=== PATIENT | male | born 1960 | race Caucasian/White ===

== ENCOUNTER → 2019-10-31 11:04 | Outpatient (CLI) | payer OTHER, SELFPAY ==
--- NOTE | 2019-10-31 | DI.MRI.S_ITS ---
PROCEDURE: MR KNEE RT WO CON INDICATIONS: Pain in right knee TECHNIQUE: Noncontrast sagittal PD fast spin echo and T2 fast spin echo with fat saturation, sagittal 3-D FLASH with fat saturation; coronal T1 spin echo and PD fast spin echo with fat saturation, and axial PD fast spin echo with fat saturation through the knee. COMPARISON: [facility], CR, XR KNEE 4+ VIEWS RIGHT, 10/11/2019, 11:22. FINDINGS: Image quality: Excellent. Menisci: The free edge of the lateral meniscus appears truncated. In addition, there is horizontal tear involving the peripheral aspect of the body of the lateral meniscus. The medial meniscus demonstrates normal morphology and internal signal. The meniscal root ligaments appear intact. Cruciate ligaments: The anterior and posterior cruciate ligaments appear intact. Medial structures: The medial collateral ligament appears intact. The semimembranosus tendon insertionsand meniscocapsular junction appear intact. Visualized portions of the pes anserinus tendons appear normal. No abnormal bursal fluid. Lateral structures: The lateral collateral ligament and the biceps femoris tendon appear intact. The popliteus tendon appears normal. Iliotibial band appears normal. Anterior structures: The quadriceps and patellar tendons appear intact. Patellar alignment is normal. No femoral trochlear dysplasia or ventral trochlear prominence. No edema in the infrapatellar fat pad. Bones and cartilage: No bone marrow contusions or fractures. There is mild tricompartmental cartilage thinning. There is a full-thickness cartilage fissure and patella. Joint space: There is moderate knee joint fluid. A small Major's cyst is present. Normal appearing synovial plicae are incidentally noted. There may be a 9 mm intra-articular body in the superior lateral aspect of the knee joint. IMPRESSION: 1. Truncation of the free edge and horizontal tear of the peripheral aspect of the body of the lateral meniscus. 2. Mild articular cartilage thinning. There is a full-thickness cartilage fissure and patella. 3. Moderate knee joint effusion. 4. Small Major's cyst. 5. Probable 9 mm intra-articular body in the superior lateral aspect of knee joint. Dictated by: Patrick Hubbard M.D. on 10/31/2019 at 12:00 Approved by: Patrick Hubbard M.D. on 10/31/2019 at 12:20
== END ==
PROVIDERS: PCP Orthopaedic Surgery Adult Reconstructive Orthopaedic Surgery; Visit Provider Orthopaedic Surgery Adult Reconstructive Orthopaedic Surgery
DX: M25.561 Pain in right knee (principal); S83.261A Peripheral tear of lateral meniscus, current injury, right knee, initial encounter; M71.21 Synovial cyst of popliteal space [Baker], right knee; M25.461 Effusion, right knee
CPT/HCPCS: 73721

== ENCOUNTER 2021-08-26 09:42 | Observation (INO) | payer OTHER, SELFPAY ==
[2021-08-26] VITALS (16 sets, daily range): BP systolic 105–149; BP diastolic 71–91; PULSE 54–68; RESP 12–18; TEMP 36.1–36.7; O2SAT 97–100; BMI 25.7; BMI 24.0
--- NOTE | 2021-08-26 | DI.MRI.S_ITS ---
PROCEDURE: MR HEAD/BRAIN WO CON INDICATIONS: cva TECHNIQUE: Noncontrast axial T1 spin echo, axial T2 fast spin echo, sagittal and axial FLAIR, coronal T2 fast spin echo, axial gradient echo, axial diffusion and ADC through the brain. COMPARISON: None. FINDINGS: Image quality: Excellent. CSF Spaces: Basal cisterns are patent. No extra-axial fluid collections. Ventricles are normal in size and shape. Brain: No intracranial masses or hemorrhage. Gunderson/white matter interface is normal. Brainstem appears normal. Diffusion-weighted images demonstrate no acute ischemic insult. No chronic ischemic insults. Scattered small foci of increased T2 signal in deep white matter structures most likely represents mild sequelae of small vessel ischemic change. Normal intravascular flow voids are present. Skull and face: Calvarium has normal marrow signal. Orbits appear normal. Sinuses: Sinuses and mastoids are clear. IMPRESSION: 1. Scattered small foci of increased T2 signal most likely represent mild small foci of small vessel ischemic change. 2. No evidence of acute stroke, hemorrhage, or mass. Dictated by: Shane Molina M.D. on 08/26/2021 at 15:57 Approved by: Shane Molina M.D. on 08/26/2021 at 15:58
--- NOTE | 2021-08-26 09:53 | DI.RAD.S_ITS ---
PROCEDURE: XR CHEST 1V INDICATIONS: chest pain TECHNIQUE: One view of the chest was acquired. COMPARISON: [facility], CR, XR CHEST 1 VIEW, 08/22/2021, 12:24. FINDINGS: Surgical changes and devices: None. Lungs and pleura: An incomplete inspiratory result is noted, causing a crowded appearance to the lung markings. No focal infiltrates are seen. No pneumothorax or significant pleural effusions are seen. Mediastinum: Mediastinal contours appear normal. Heart size is normal. Bones and chest wall: No suspicious bony lesions. Overlying soft tissues appear unremarkable. IMPRESSION: Portable chest within normal limits. Dictated by: Daniele River M.D. on 08/26/2021 at 9:19 Approved by: Daniele River M.D. on 08/26/2021 at 9:20
--- NOTE | 2021-08-26 10:02 | DI.CT.S_ITS ---
PROCEDURE: CT HEAD/BRAIN WO CON INDICATIONS: left sided facial numbness TECHNIQUE: Noncontrast 4.5 mm thick angled axial sections acquired from the foramen magnum to the vertex, with coronal and sagittal reformats. For radiation dose reduction, the following was used: automated exposure control, adjustment of mA and/or kV according to patient size. COMPARISON: None. FINDINGS: Image quality: Excellent. CSF spaces: Basal cisterns are patent. No extra-axial fluid collections. Ventricles are normal in size and shape. Brain: No midline shift. No intracranial masses or hemorrhage. Gunderson-white matter interface is normal. Skull and face: Calvarium and visualized facial bones are intact, without suspicious lesions. Sinuses: Visualized sinuses and mastoids are clear. IMPRESSION: 1. No acute intracranial process. Dictated by: Fina Desai M.D. on 08/26/2021 at 11:00 Approved by: Fina Desai M.D. on 08/26/2021 at 11:01
[2021-08-26 10:06] LABS: Add Manual Diff / Slide Review NO; Basophils Absolute Auto 0 /uL (0-100); Basophils Percent Auto 0.2 % (0-2); Eosinophils Absolute Auto 100 /uL (0-450); Eosinophils Percent Auto 1.5 % (2-4); Hematocrit 39.2 % (41-53); Hemoglobin 13.4 g/dL (13.5-17.5); Lymphocytes Absolute Auto 1900 /uL (1100-4500); Lymphocytes Percent Auto 35.4 % (25-40); Mean Corpuscular HGB Conc 34.3 % (30-36); Mean Corpuscular Hemoglobin 29.1 PG (26-34); Mean Corpuscular Volume 84.9 fL (80-100); Monocytes Absolute Auto 300 /uL (0-900); Monocytes Percent Auto 5.2 % (3-14); Neutrophils Absolute Auto 3000 /uL (1500-7000); Neutrophils Percent Auto 57.7 % (50-75); Platelet Count 221 X10^3/uL (150-400); Red Blood Cell Count 4.62 X10^6/uL (4.5-5.9); Red Cell Distribution Width 15.6 % (11.6-14.8); White Blood Cell Count 5.3 X10^3/uL (4.5-11.0)
[2021-08-26 10:13] LABS: INR 1.1 (0.9-1.3); Prothrombin Time 11.8 SECONDS (10.1-12.7)
--- NOTE | 2021-08-26 10:13 | ED_ITS ---
HPI - Chest Pain General Chief Complaint: Chest Pain Stated Complaint: Numbness,odd heart beats,chest pain,indigestion Time Seen by Provider: 08/26/21 10:02 Source: patient Mode of arrival: Ambulatory Limitations: no limitations History of Present Illness HPI narrative: Patient is a 61-year-old male for who has a newly diagnosed heart condition of premature atrial complexes presenting today with left-sided facial numbness, and dizziness last night. He actually was having some chest palpitations and discomfort on August 22 he was initially seen at a walk-in clinic on [facility] and sent to [facility] for further workup appetite is had workup in the emergency department set up with outpatient Cardiology and discharged home. Last night he said he got extremely dizzy and felt like his heart was pounding. He said it lasted for a number of hours and just went away. This morning he went to work around 7:00 a.m. and felt like his left face was numb and had difficulty speaking. thought it sounded like he just come back from the dentist. Still has occasional heart palpitations but he does the not too terrible right now. He has no left arm numbness tingling or weakness. He has no facial droop. He has no difficulty speaking. Denies any shortness of breath. Related Data Home Medications Medication Instructions Recorded Confirmed fenofibrate 160 mg tablet 160 mg PO DAILY 08/26/21 08/26/21 fexofenadine 180 mg tablet 180 mg PO DAILY 08/26/21 08/26/21 fluticasone propionate 50 1 spray INTRANASAL BID PRN 08/26/21 08/26/21 mcg/actuation nasal spray,suspension glucosamine sulfate 500 mg tablet 1,000 mg PO DAILY 08/26/21 08/26/21 (Glucosamine) lisinopril 10 1 tab PO DAILY 08/26/21 08/26/21 mg-hydrochlorothiazide 12.5 mg tablet metoprolol succinate 50 mg 50 mg PO DAILY 08/26/21 08/26/21 tablet,extended release 24 hr omeprazole 20 mg capsule,delayed 20 mg PO DAILY 08/26/21 08/26/21 release vitamin B complex 1 cap PO DAILY 08/26/21 08/26/21 Allergies Allergy/AdvReac Type Severity Reaction Status Date / Time No Known Drug Allergies Allergy Verified 08/26/21 12:00 Review of Systems Review of Systems Narrative: GENERAL: Denies chills, fatigue, malaise, fever, sweats, travel HEENT: Denies sinus pain, ear pain, sore throat, difficulty swallowing, neck pain RESPIRATORY: Denies dyspnea, cough, wheezing, hemoptysis, sputum. CARDIOVASCULAR: See HPI GASTROINTESTINAL: Denies nausea, vomiting, abdominal pain, diarrhea, constipation, melena. : Denies dysuria, frequency, incontinence, hematuria, urinary retention, flank pain. MUSCULOSKELETAL: Denies weakness, joint pain, or bony pain SKIN: No rash, no erythema, no pruritus NEUROLOGIC: See HPI PSYCHIATRIC: No concerning psychosocial issues. 12 point review of systems is negative except for those stated above and HPI Patient History Social History household members: spouse Smoking Status: Never smoker Smoking Status: Never smoker Substance Use Type: does not use Exam Initial Vital Signs Initial Vital Signs: Vital Signs Pulse Rate 62 08/26/21 09:55 Respiratory Rate 13 08/26/21 09:55 Blood Pressure 140/91 H 08/26/21 09:55 Pulse Oximetry 99 08/26/21 09:55 GENERAL: Alert well-appearing 61-year-old her male in no acute distress. HEENT: Head atraumatic,EOMI, pupils reactive, face symmetric, moist mucous membranes CARDIOVASCULAR: Regular rate and rhythm without murmurs, rubs or gallops. RESPIRATORY: Breath sounds equal bilaterally, no wheezes rales or rhonchi. ABDOMEN: Soft, nontender. Normoactive bowel sounds all 4 quadrants. No guarding or rebound. EXTREMITIES: Normal range of motion, no clubbing or edema. Neurovascularly intact NEUROLOGICAL: Alert and oriented x4.Normal gait and speech. Cranial nerves II through XII grossly intact. Good moqfsy-oi-obti, good [id number], strength equal bilaterally, no dysarthria or aphasia, sensation in tact to soft touch bilaterally, no visual changes, no facial droop, mild left facial numbness SKIN: Warm, dry, no laceration, no petechiae, no rashes or lesions. Scores NIH Stroke Scale Level of Conciousness: Alert, keenly responsive Ask month/age: Answers both questions correctly. Open/close eyes, close hand: Performs both tasks correctly Best gaze horizontal: Normal Visual alonso: No visual loss Facial palsy: Normal symetrical movement Left arm drift: No drift for full 10 sec Right arm drift: No drift for full 10 sec Left leg drift: No drift for full 5 sec Right leg drift: No drift for full 5 sec Limb ataxia: Absent Sensory on face/arms/legs: Normal, no sensory loss Best language: No aphasia, normal Dysarthria: Normal Extinction or inattention: No abnormality Total NIH Stroke scale score: 0 Course Orders Ordered: ED Orders 08/26/21 12:10 EC echo doppler complete Urgent 08/26/21 12:49 COVID19 - ADMIT ([employer] swab/PCR) Stat Acetaminophen (Acetaminophen 325 Mg Tablet) 650 mg PO Q6HR PRN PRN Reason: Fever/Mild Pain (1-3) Aspirin (Aspirin Ec 81 Mg Tablet) 81 mg PO DAILY DASH Atorvastatin Calcium (Atorvastatin 20 Mg Tablet) 80 mg PO BEDTIME DASH Enoxaparin Sodium (Enoxaparin 40 Mg/0.4 Ml Syringe) 40 mg SUBCUT DAILY [facility] Sodium Chloride (Normal Saline 0.9%) 1,000 mls @ 75 mls/hr IV CONT DASH Last Admin: 08/26/21 16:04 Dose: 75 mls/hr Documented by: MAREK Ondansetron HCl (Ondansetron 4 Mg/2 Ml Inj) 4 mg IV Q8HR PRN PRN Reason: Nausea And Vomiting Sodium Chloride (Sodium Chloride 0.9% Flush) 10 ml IV PRN PRN PRN Reason: Flush Discontinued Medications Aspirin (Aspirin 81 Mg Chew Tab) 324 mg PO NOW ONE Stop: 08/26/21 11:41 Last Admin: 08/26/21 12:22 Dose: 324 mg Documented by: SAVANA Vital Signs Vital signs: Vital Signs - 8 hr 08/26/21 12:00 08/26/21 12:30 08/26/21 12:31 Pulse Rate 57 L 56 L 54 L Respiratory Rate 13 12 15 Blood Pressure 108/76 116/82 Pulse Oximetry 99 100 100 08/26/21 13:00 Pulse Rate 62 Respiratory Rate 13 Blood Pressure Pulse Oximetry 100 MDM - Chest Pain Lab Data Result diagrams: 08/26/21 10:00 08/26/21 10:00 Labs: Lab Results 08/26/21 08/26/21 08/26/21 Range/Units 10:00 10:00 10:00 WBC 5.3 (4.5-11.0) X10^3/uL RBC 4.62 (4.5-5.9) X10^6/uL Hgb 13.4 L (13.5-17.5) g/dL Hct 39.2 L (41-53) % MCV 84.9 (80-100) fL MCH 29.1 (26-34) PG MCHC 34.3 (30-36) % RDW 15.6 H (11.6-14.8) % Plt Count 221 (150-400) X10^3/uL Neut % (Auto) 57.7 (50-75) % Lymph % (Auto) 35.4 (25-40) % Jessamine % (Auto) 5.2 (3-14) % Eos % (Auto) 1.5 L (2-4) % Baso % (Auto) 0.2 (0-2) % Neut # (Auto) 3000 (9688-4687) /uL Lymph # (Auto) 1900 (0591-1302) /uL Jessamine # (Auto) 300 (0-900) /uL Eos # (Auto) 100 (0-450) /uL Baso # (Auto) 0 (0-100) /uL PT 11.8 (10.1-12.7) SECONDS INR 1.1 (0.9-1.3) APTT 34 (26.4-36.2) SECONDS Sodium 139 (137-145) mmol/L Potassium 3.9 (3.4-5.1) mmol/L Chloride 101 (98-107) mmol/L Carbon Dioxide 28 (22-32) mmol/L BUN 17 (9-20) mg/dL Creatinine 1.05 (0.66-1.25) mg/dL Estimated GFR > 60.0 (>60) mL/min BUN/Creatinine Ratio 16.2 (6-22) Glucose 98 (80-110) mg/dL Calcium 10.0 (8.4-10.2) mg/dL Magnesium 2.1 (1.6-2.3) mg/dL Total Bilirubin 1.0 (0.2-1.3) mg/dL AST 34 (17-59) IU/L ALT 35 (<50) IU/L Alkaline Phosphatase 42 (38-126) U/L Total Creatine Kinase 106 (55-170) U/L CK-MB (CK-2) 1.13 (<2.37) ng/mL CK-MB (CK-2) Rel Index 1.1 L (1.5-5.0) % Troponin I < 0.012 (0.01-0.034) ng/mL Total Protein 7.8 (6.3-8.2) g/dL Albumin 5.0 (3.5-5.0) g/dL Globulin 2.8 (1.7-4.1) g/dL Albumin/Globulin Ratio 1.8 (1.0-2.8) Lipase 96 (23-300) U/L TSH (0.47-4.68) uIU/mL SARS-CoV-2 (PCR) (Negative) 08/26/21 08/26/21 Range/Units 10:00 12:49 WBC (4.5-11.0) X10^3/uL RBC (4.5-5.9) X10^6/uL Hgb (13.5-17.5) g/dL Hct (41-53) % MCV (80-100) fL MCH (26-34) PG MCHC (30-36) % RDW (11.6-14.8) % Plt Count (150-400) X10^3/uL Neut % (Auto) (50-75) % Lymph % (Auto) (25-40) % Jessamine % (Auto) (3-14) % Eos % (Auto) (2-4) % Baso % (Auto) (0-2) % Neut # (Auto) (5787-3201) /uL Lymph # (Auto) (9003-6025) /uL Jessamine # (Auto) (0-900) /uL Eos # (Auto) (0-450) /uL Baso # (Auto) (0-100) /uL PT (10.1-12.7) SECONDS INR (0.9-1.3) APTT (26.4-36.2) SECONDS Sodium (137-145) mmol/L Potassium (3.4-5.1) mmol/L Chloride (98-107) mmol/L Carbon Dioxide (22-32) mmol/L BUN (9-20) mg/dL Creatinine (0.66-1.25) mg/dL Estimated GFR (>60) mL/min BUN/Creatinine Ratio (6-22) Glucose (80-110) mg/dL Calcium (8.4-10.2) mg/dL Magnesium (1.6-2.3) mg/dL Total Bilirubin (0.2-1.3) mg/dL AST (17-59) IU/L ALT (<50) IU/L Alkaline Phosphatase (38-126) U/L Total Creatine Kinase (55-170) U/L CK-MB (CK-2) (<2.37) ng/mL CK-MB (CK-2) Rel Index (1.5-5.0) % Troponin I (0.01-0.034) ng/mL Total Protein (6.3-8.2) g/dL Albumin (3.5-5.0) g/dL Globulin (1.7-4.1) g/dL Albumin/Globulin Ratio (1.0-2.8) Lipase (23-300) U/L TSH 3.33 (0.47-4.68) uIU/mL SARS-CoV-2 (PCR) Negative (Negative) Imaging Data CT scan - head: Radiologist's Impression: PROCEDURE:? CT HEAD/BRAIN WO CON ? INDICATIONS:? left sided facial numbness ? TECHNIQUE:? Noncontrast 4.5 mm thick angled axial sections acquired from the foramen magnum to the vertex, with coronal and sagittal reformats.? For radiation dose reduction, the following was used:? automated exposure control, adjustment of mA and/or kV according to patient size.? ? COMPARISON:? None. ? FINDINGS:? Image quality:? Excellent.? ? CSF spaces:? Basal cisterns are patent.? No extra-axial fluid collections.? Ventricles are normal in size and shape.? ? Brain:? No midline shift.? No intracranial masses or hemorrhage.? Gunderson-white matter interface is normal.? ? Skull and face:? Calvarium and visualized facial bones are intact, without suspicious lesions.? ? Sinuses:? Visualized sinuses and mastoids are clear.? ? IMPRESSION:? ? 1. No acute intracranial process. ? ? Dictated by: Fina Desai M.D. on 08/26/2021 at 11:00 ? ? CTA - brain/neck: Radiologist's Impression: PROCEDURE:? CT ANGIO HEAD AND NECK ? INDICATIONS:? dizzy ? TECHNIQUE:? After the administration of intravenous contrast, 1 mm thick sections acquired from the aortic arch through the [place] of [place].? Post-contrast 4.5 mm thick sections then re-acquired from the foramen magnum to the vertex.? 3-dimensional gslwlev-mbdvelaso-eqwvvivsaw (MIP) and/or volume rendering reformats were acquired of the central intracranial vasculature and neck separately. ? COMPARISON:? [facility], CT, CT HEAD/BRAIN WO CON, 08/26/2021, 10:09. ? FINDINGS:? Image quality:? Excellent.? ? BRAIN:? CSF spaces:? Ventricles are normal in size and shape.? Basal cisterns are patent.? No extra-axial fluid collections.? ? Brain:? No midline shift.? No intracranial bleeds or masses.? Gunderson-white matter interface appears intact.? ? Skull and face:? Calvarium and facial bones appear intact, without suspicious lesions.? Orbits appear normal.? ? Sinuses:? Sinuses and mastoids are clear.? ? HEAD CT ANGIOGRAPHY:? Anterior circulation:? Intracranial internal carotid arteries are normal in size and flow.? The flow within the paired anterior cerebral arteries is normal and symmetric.? The flow within the middle cerebral arteries is normal and symmetric.? The anterior communicating artery is seen.? No aneurysms are seen.? ? Posterior circulation:? Visualized portions of the vertebral arteries demonstrate normal caliber, and join to form a normal appearing basilar artery.? Flow within the posterior cerebral arteries is normal and symmetric.? No aneurysms are seen.? ? NECK CT ANGIOGRAPHY:? Carotid system:? There is a common trunk for the left common carotid artery and innominate artery.? The origins of the common carotid arteries appear patent.? The common carotid arteries demonstrate normal caliber and courses.? The bifurcation regions are both widely patent.? The internal carotid arteries demonstrate normal calibers and courses.? ? Posterior circulation:? The origins of the vertebral arteries both appear widely patent.? The more superior extracranial portions of both vertebral arteries also demonstrate normal courses and calibers.? They join to form a normal appearing basilar artery.? ? Soft tissues:? Visualized neck soft tissues demonstrate no suspicious abnormalities.? ? Bones:? No suspicious bony lesions.? Visualized cervical spine appears normally aligned.? IMPRESSION:? ? 1. No acute intracranial abnormalities. ? 2. No hemodynamic significant stenosis in anterior or posterior circulations. ? 3. No hemodynamic significant stenosis in cervical carotid arteries or vertebral arteries bilaterally. ? ? Any quantitative measurements of stenosis were performed using NASCET criteria.? ? ? Dictated by: Patrick Hubbard M.D. on 08/26/2021 at 10:56 ? ? Approved by: Patrick Hubbard M.D. on 08/26/2021 at 11:04 ? ECG Data Interpretation: Sinus rhythm rate 59 ID interval 190 QRS 82 QTC 411 some mild artifact noted, no priors in cardio electrical prospecting observer, patient comes with copy from prior visit and is similar MDM Narrative Medical decision making narrative: Patient overall appears well. Last night he had episode of palpitations with dizziness and this morning has left-sided f acial numbness. Possible episode of atrial fibrillation with possible TIA versus CVA today. Low NIH stroke scale CT are negative. No abnormality on the monitor her EKG troponin is also negative. However concern the patient may have had a TIA. Discussion with Dr. Perez, who happily accepts patient to observation. Discharge Plan Departure Patient Disposition: Admitted as Observation Clinical Impression: Brain TIA, Chest pain Admit Date/Time: 08/26/21 13:23 Admit Provider: Johnathon Perez
[2021-08-26 10:15] LABS: PTT Partial Thromboplastin Tim 34 SECONDS (26.4-36.2)
[2021-08-26 10:21] LABS: Alanine Aminotransferase 35 IU/L (<50); Albumin Globulin Ratio 1.8 (1.0-2.8); Alkaline Phosphatase 42 U/L (38-126); Aspartate Aminotransferase 34 IU/L (17-59); BUN Creatinine Ratio 16.2 (6-22); Blood Urea Nitrogen 17 mg/dL (9-20); Carbon Dioxide 28 mmol/L (22-32); Chloride 101 mmol/L (98-107); Creatine Kinase 106 U/L (55-170); Estimated Glomerular Filt Rate > 60.0 mL/min (>60); Globulin 2.8 g/dL (1.7-4.1); Glucose 98 mg/dL (80-110); HEMOLYSIS < 15 (0-50); Lipase 96 U/L (23-300); Magnesium 2.1 mg/dL (1.6-2.3); Potassium 3.9 mmol/L (3.4-5.1); Sodium 139 mmol/L (137-145); Total Protein 7.8 g/dL (6.3-8.2)
--- NOTE | 2021-08-26 10:27 | DI.CT.S_ITS ---
PROCEDURE: CT ANGIO HEAD AND NECK INDICATIONS: dizzy TECHNIQUE: After the administration of intravenous contrast, 1 mm thick sections acquired from the aortic arch through the [place] of [place]. Post-contrast 4.5 mm thick sections then re-acquired from the foramen magnum to the vertex. 3-dimensional kqriyhh-czzxshonr-bugaiorqnb (MIP) and/or volume rendering reformats were acquired of the central intracranial vasculature and neck separately. COMPARISON: [facility], CT, CT HEAD/BRAIN WO CON, 08/26/2021, 10:09. FINDINGS: Image quality: Excellent. BRAIN: CSF spaces: Ventricles are normal in size and shape. Basal cisterns are patent. No extra-axial fluid collections. Brain: No midline shift. No intracranial bleeds or masses. Gunderson-white matter interface appears intact. Skull and face: Calvarium and facial bones appear intact, without suspicious lesions. Orbits appear normal. Sinuses: Sinuses and mastoids are clear. HEAD CT ANGIOGRAPHY: Anterior circulation: Intracranial internal carotid arteries are normal in size and flow. The flow within the paired anterior cerebral arteries is normal and symmetric. The flow within the middle cerebral arteries is normal and symmetric. The anterior communicating artery is seen. No aneurysms are seen. Posterior circulation: Visualized portions of the vertebral arteries demonstrate normal caliber, and join to form a normal appearing basilar artery. Flow within the posterior cerebral arteries is normal and symmetric. No aneurysms are seen. NECK CT ANGIOGRAPHY: Carotid system: There is a common trunk for the left common carotid artery and innominate artery. The origins of the common carotid arteries appear patent. The common carotid arteries demonstrate normal caliber and courses. The bifurcation regions are both widely patent. The internal carotid arteries demonstrate normal calibers and courses. Posterior circulation: The origins of the vertebral arteries both appear widely patent. The more superior extracranial portions of both vertebral arteries also demonstrate normal courses and calibers. They join to form a normal appearing basilar artery. Soft tissues: Visualized neck soft tissues demonstrate no suspicious abnormalities. Bones: No suspicious bony lesions. Visualized cervical spine appears normally aligned. IMPRESSION: 1. No acute intracranial abnormalities. 2. No hemodynamic significant stenosis in anterior or posterior circulations. 3. No hemodynamic significant stenosis in cervical carotid arteries or vertebral arteries bilaterally. Any quantitative measurements of stenosis were performed using NASCET criteria. Dictated by: Patrick Hubbard M.D. on 08/26/2021 at 10:56 Approved by: Patrick Hubbard M.D. on 08/26/2021 at 11:04
[2021-08-26 10:32] LABS: Troponin I < 0.012 ng/mL (0.01-0.034)
[2021-08-26 10:36] LABS: CKMB % Relative Index 1.1 % (1.5-5.0); Creatine Kinase MB 1.13 ng/mL (<2.37)
--- NOTE | 2021-08-26 11:23 | PC.NURSE ---
Pt also c/o numbness and tingling on left side of face. Moving all extremities equally well. Denies shortness of breath, fever, cough.
--- NOTE | 2021-08-26 12:10 | DI.ECHO.S_ITS ---
[facility] +---------+ : : [address] : [address] : : : : [id number] : : : : Phone: [phone]+ Echocardiogram Report + + :Name: ASAF ZHOU Study Date: 08/26/2021 Height: 74 in : :[facility] ReadingLocation: Weight: 200 lb : : Gender: Male BSA: 2.2 m2 : :: 1960 Age: 61 yrs BP: 116/82 mmHg: :Reason For Study: TIA : :Ordering Physician: KRISTIAN, : :MARISELA Performed By: Martha Main : :Referring: MARISELA TOWNSEND : + + Interpretation Summary The ejection fraction is estimated to be 55-60%. Diastolic parameters suggest probable normal left ventricular diastolic function and normal filling pressures. The right ventricular systolic function is normal. No significant valvular abnormalities. Pulmonary artery pressures cannot be estimated because of the lack of a measurable TR jet velocity. Procedure: A two-dimensional transthoracic echocardiogram with color flow and Doppler was performed. The study quality was technically good. There is no prior echocardiogram noted for this patient. A saline contrast injection was performed to assess for cardiac shunting. The injection was performed through an intravenous line in the right arm. The patient was in sinus bradycardia with heart rates between 50-64 bpm during the exam. Left Ventricle: The left ventricle is normal in size and wall thickness. The ejection fraction is estimated to be 55-60%. Diastolic parameters suggest probable normal left ventricular diastolic function and normal filling pressures. Right Ventricle: The right ventricle is normal size. The right ventricular systolic function is normal. Atria: The left atrial size is normal. Right atrial size is normal. There is no Doppler evidence for an interatrial shunt. Injection of contrast documented no interatrial shunt. Mitral Valve: The mitral valve is normal in structure and function. There is trace mitral regurgitation. Aortic Valve: The aortic valve is trileaflet. The aortic valve opens well. There is no aortic valve stenosis. No aortic regurgitation is present. Tricuspid Valve: The tricuspid valve is normal in structure and function. There is trace tricuspid regurgitation. Pulmonary artery pressures cannot be estimated because of the lack of a measurable TR jet velocity. Pulmonic Valve: The pulmonic valve leaflets are thin and pliable; valve motion is normal. There is no pulmonic valvular regurgitation. Great Vessels: The aortic root is normal size. The ascending aorta is mildly enlarged. The inferior vena cava was not visualized. Pericardium/ Pleura There is no pericardial effusion. There is no pleural effusion. MMode/2D Measurements & Calculations LVIDd: 4.6 cm LVOT diam: 2.1 cm LVIDs: 3.3 cm Ao root diam: 3.5 cm FS: 27.8 % asc Aorta Diam: 3.7 cm IVSd: 1.0 cm Ao Arch Diam (Prox Trans): 3.0 cm LVPWd: 0.97 cm LV martinez. diameter/BSA (cm/m^2): 2.1 LV sys. diameter/BSA (cm/m^2): 1.5 LA A2 area: 23.3 cm2 RA long axis: 5.6 cm LA A4 area: 19.4 cm2 RA area: 20.1 cm2 LA length (vol): 5.8 cm RA vol: 61.0 ml LA vol: 66.3 ml RA : 28.1 ml/m2 LA vol index: 30.5 ml/m2 RVD1 (basal): 4.1 cm TAPSE: 1.8 cm Doppler Measurements & Calculations Ao V2 max: 129.1 cm/sec LVOT Max Andrés: 84.0 cm/sec Ao V2 mean: 87.7 cm/sec LV V1 max P.8 mmHg Ao max P.7 mmHg LV V1 VTI: 19.4 cm Ao mean P.5 mmHg KENDRA(I,D): 2.4 cm2 Ao V2 VTI: 28.7 cm KENDRA(V,D): 2.3 cm2 sev ratio: 0.68 KENDRA indexed to BSA (cm^2/m^2): 1.1 MV E max andrés: 55.0 cm/sec TR max andrés: 212.3 cm/sec MV A max andrés: 69.0 cm/sec TR max P.0 mmHg MV E/A: 0.80 PA V2 max: 80.4 cm/sec Med Peak E' Andrés: 5.5 cm/sec PA V2 mean: 54.6 cm/sec E/E' med: 10.1 PA mean P.3 mmHg Lat Peak E' Andrés: 8.5 cm/sec PA pr(Accel): 22.5 mmHg E/E' lat: 6.5 E/e' average: 8.3 MV dec time: 0.23 sec SV(LVOT): 67.5 ml Reading Physician:01:50 PM
[2021-08-26] MEDS: ASPIRIN 81 MG CHEW TAB 324 MG PO (12:22)
--- NOTE | 2021-08-26 13:18 | PC.NURSE ---
portable echo complete.
[2021-08-26 14:11] LABS: COVID19 - ADMIT (NP swab/PCR) Negative (Negative)
--- NOTE | 2021-08-26 15:11 | ST.IPSCREEN ---
Completed speech and swallow screen with Tavo. He was awake, alert, and seated at the edge of his bed when clinician arrived. Tavo reported no facial weakness or numbness, no difficulty speaking, and no difficulty swallowing. Completed oral motor exam with Tavo. Tavo exhibited strength and ROM of structures WNL. Hyolaryngeal elevation and excursion was WNL on dry swallow and when drinking water through straw cup. Oral structures appeared symmetrical and WNL. Structure and function of oral mechanism appears WNL for the purposes of speech and swallowing. No overt signs or symptoms of aspiration observed on trials of thin liquids through straw cup. Speech was clear and 100% intelligible. Speech therapy is not recommended at this time.
[2021-08-26 15:54] LABS: TSH w/ Reflex to FT4 3.33 uIU/mL (0.47-4.68)
[2021-08-26] MEDS: SODIUM CHLORIDE 0.9% 1,000 ML 75 ML IV (16:04)
--- NOTE | 2021-08-26 16:23 | OT.IPNOTE ---
Pt states does not feel that he has any OT needs at this time. Pt is the process on getting heart pads attached to him with nursing, therefore decided since pt staying overnight to touch base with pt in the morning.
--- NOTE | 2021-08-26 17:02 | DI.NM.S_ITS ---
PROCEDURE: NM EXERCISE TREADMILL NON NUC COMPARISON: None. INDICATIONS: Chest pain FINDINGS: Resting ECG sinus rhythm. Armand protocol 9 minutes, 10 seconds; 10.1 METS; MOSHE -5%. Maximum heart rate 173 bpm, 108% peak predicted. Maximum blood pressure 188/96. Stress ECG sinus tachycardia, rare PAC and PVC, no ST segment changes. IMPRESSION: 1. No evidence of exercise induced ischemia by ECG criteria. 2. Good exercise capacity. 3. Normal blood pressure response to exercise. Dictated by: Rhonda Galeana DO.. on 08/27/2021 at 14:14 Approved by: Rhonda Galeana M.D. on 08/27/2021 at 14:17
[2021-08-26] MEDS: ATORVASTATIN 20 MG TABLET 80 MG PO (21:20)
[2021-08-26] MEDS: SODIUM CHLORIDE 0.9% FLUSH 10 ML IV (21:20)
--- NOTE | 2021-08-26 21:55 | PM.HP.1 ---
History of Present Illness History of Present Illness Date Patient Seen: 08/26/21 Time Patient Seen: 16:00 Chief complaint: Numbness,odd heart beats,chest pain,indigestion Narrative: Mr. Pascual is a 61M with PMH of HTN, HL who presents with chest pain, palpitations and left sided facial numbness. Patient has had issues with palpitations previously. He is currently on metoprolol, has been for years, for he says blood pressure, not arrhythmia. He presented to [facility] ED on 08/22 with palpitations and was diagnosed with PACs and sent home. Since being sent home he has had intermittent chest tightness, continued palpitains, dizzines, no shortness of breath. He also developed left sided facial pain, facial numbness, and difficulty speaking. These resolved without intervention. In the ED workup was done, vitals notable for mild bradycardia in 50s-60s. Labs notable for WBC 5.3, hgb 13.4, k 3.9, creatinine 1.05, mag 2.1, trop negative. EKG showed no acuet ischemic changes. CT head showed no acute process. CTA head/neck showed no acute process. He was admitted for further treatment. Family history - Mother had diseased heart valve Patient History Family & Social History Social History: household members spouse Safety & Behavioral: Feels Safe in Current Yes Environment Been Physically Hurt or No Threatened By a Person Suicidal Ideation Description None Suicide Plan Description No Plan Tobacco & Substance use: Smoking Status Never smoker alcohol intake frequency a few times a month Substance Use Type does not use Meds Home Medications and Allergies Home Medications Medication Instructions Recorded Confirmed Type fenofibrate 160 mg tablet 160 mg PO DAILY 08/26/21 08/26/21 History fexofenadine 180 mg tablet 180 mg PO DAILY 08/26/21 08/26/21 History fluticasone propionate 50 1 spray INTRANASAL BID PRN 08/26/21 08/26/21 History mcg/actuation nasal spray,suspension glucosamine sulfate 500 mg tablet 1,000 mg PO DAILY 08/26/21 08/26/21 History (Glucosamine) lisinopril 10 1 tab PO DAILY 08/26/21 08/26/21 History mg-hydrochlorothiazide 12.5 mg tablet metoprolol succinate 50 mg 50 mg PO DAILY 08/26/21 08/26/21 History tablet,extended release 24 hr omeprazole 20 mg capsule,delayed 20 mg PO DAILY 08/26/21 08/26/21 History release vitamin B complex 1 cap PO DAILY 08/26/21 08/26/21 History Allergies Allergy/AdvReac Type Severity Reaction Status Date / Time No Known Drug Allergies Allergy Verified 08/26/21 12:00 Review of Systems Review of Systems Narrative: 14 systems reviewed and negative aside from what is noted in HPI Exam Vital Signs (past 8 hours): - 08/26/21 14:21 08/26/21 15:55 08/26/21 20:00 Temperature 97.3 F L 97.0 F L 98.0 F Pulse Rate 57 L 56 L 68 Respiratory Rate 16 16 18 Blood Pressure 124/71 122/89 111/83 Pulse Oximetry 99 100 98 08/26/21 21:15 Temperature Pulse Rate Respiratory Rate Blood Pressure Pulse Oximetry 98 Oxygen Delivery Method Room Air Oxygen Flow Rate 0 Narrative Exam Narrative: GEN: no acute distress HEENT: moist mucous membranes, PERRL NECK: trachea midline, no JVD CV: regular rate rhythm, with no murmurs PULM: clear bilaterally, no wheezes, rhonchi, rales ABD: soft, nontender, nondistende, no organomegaly EXT: warm and well perfused, with no edema NEURO: awake, and alert, no focal deficits, upper and lower extremity strength 5/5, cn 2-12 intact, normal speech, no facial droop Objective Labs Result Diagrams: 08/26/21 10:00 08/26/21 10:00 Labs: Laboratory Results - last 24 hr 08/26/21 08/26/21 08/26/21 10:00 10:00 10:00 WBC 5.3 RBC 4.62 Hgb 13.4 L Hct 39.2 L MCV 84.9 MCH 29.1 MCHC 34.3 RDW 15.6 H Plt Count 221 Neut % (Auto) 57.7 Lymph % (Auto) 35.4 Perry % (Auto) 5.2 Eos % (Auto) 1.5 L Baso % (Auto) 0.2 Neut # (Auto) 3000 Lymph # (Auto) 1900 Perry # (Auto) 300 Eos # (Auto) 100 Baso # (Auto) 0 PT 11.8 INR 1.1 APTT 34 Sodium 139 Potassium 3.9 Chloride 101 Carbon Dioxide 28 BUN 17 Creatinine 1.05 Estimated GFR > 60.0 BUN/Creatinine Ratio 16.2 Glucose 98 Calcium 10.0 Magnesium 2.1 Total Bilirubin 1.0 AST 34 ALT 35 Alkaline Phosphatase 42 Total Creatine Kinase 106 CK-MB (CK-2) 1.13 CK-MB (CK-2) Rel Index 1.1 L Troponin I < 0.012 Total Protein 7.8 Albumin 5.0 Globulin 2.8 Albumin/Globulin Ratio 1.8 Lipase 96 TSH SARS-CoV-2 (PCR) 08/26/21 08/26/21 10:00 12:49 WBC RBC Hgb Hct MCV MCH MCHC RDW Plt Count Neut % (Auto) Lymph % (Auto) Perry % (Auto) Eos % (Auto) Baso % (Auto) Neut # (Auto) Lymph # (Auto) Perry # (Auto) Eos # (Auto) Baso # (Auto) PT INR APTT Sodium Potassium Chloride Carbon Dioxide BUN Creatinine Estimated GFR BUN/Creatinine Ratio Glucose Calcium Magnesium Total Bilirubin AST ALT Alkaline Phosphatase Total Creatine Kinase CK-MB (CK-2) CK-MB (CK-2) Rel Index Troponin I Total Protein Albumin Globulin Albumin/Globulin Ratio Lipase TSH 3.33 SARS-CoV-2 (PCR) Negative Assessment & Plan Assessment & Plan narrative: Mr. Pascual is a 61M with PMH HTN, HL who presents to the hospital with palpitations, chest discomfort, left facial numbness now resolved. 1. Possible TIA -ordered for neuro assessments -MRI ordered -ECHO showed EF 50-55%, no acute findings -lipids, a1c ordered -started on aspirin, and statin -ordered for PT/OT and speech therapy, but may not need as appears very functional 2. Chest pain/palpitations -patient has EKG with PACs, here in the hospital is slightly bradycardic -possibly those are causing symptoms -will hold metoprolol for now and see if that improves symptoms -trend troponins -ordered for stress test -may need holter monitor as outpatient 3. Hypertension -hold anti-hypertensives for tonight and see if patient's symptoms improve 4. Bradycardia -not clear if the cause of symptoms, given bradycardia is mild doubt that it is cause -will hold metoprolol for now and monitor Code: Heating Engineer Spent With Patient Critical Care time: I spent a total of [] minutes of critical care time on this patient's care today; this time is exclusive of procedural time.
[2021-08-26 23:52] LABS: Troponin I < 0.012 ng/mL (0.01-0.034)
[2021-08-27 04:27] VITALS: BP 109/66; PULSE 66; RESP 18; O2SAT 99
[2021-08-27 05:11] LABS: BUN Creatinine Ratio 20.5 (6-22); Blood Urea Nitrogen 18 mg/dL (9-20); Calcium 9.6 mg/dL (8.4-10.2); Carbon Dioxide 27 mmol/L (22-32); Chloride 104 mmol/L (98-107); Cholesterol 115 mg/dL (140-199); Estimated Glomerular Filt Rate > 60.0 mL/min (>60); Glucose 103 mg/dL (80-110); HDL Cholesterol 34 mg/dL (40-60); HEMOLYSIS < 15 (0-50); LDL Cholesterol Calculated 56 mg/dL (<100); Potassium 3.9 mmol/L (3.4-5.1); Sodium 139 mmol/L (137-145); Triglycerides 124 mg/dL (35-150)
[2021-08-27 05:22] LABS: Add Manual Diff / Slide Review NO; Basophils Absolute Auto 100 /uL (0-100); Basophils Percent Auto 1.2 % (0-2); Eosinophils Absolute Auto 100 /uL (0-450); Eosinophils Percent Auto 1.5 % (2-4); Hematocrit 37.7 % (41-53); Hemoglobin 13.1 g/dL (13.5-17.5); Lymphocytes Absolute Auto 1600 /uL (1100-4500); Lymphocytes Percent Auto 28.4 % (25-40); Mean Corpuscular HGB Conc 34.8 % (30-36); Mean Corpuscular Hemoglobin 29.2 PG (26-34); Mean Corpuscular Volume 83.9 fL (80-100); Monocytes Absolute Auto 200 /uL (0-900); Monocytes Percent Auto 4.5 % (3-14); Neutrophils Absolute Auto 3500 /uL (1500-7000); Neutrophils Percent Auto 64.4 % (50-75); Platelet Count 195 X10^3/uL (150-400); Red Blood Cell Count 4.49 X10^6/uL (4.5-5.9); Red Cell Distribution Width 15.6 % (11.6-14.8); White Blood Cell Count 5.5 X10^3/uL (4.5-11.0)
[2021-08-27 05:23] LABS: Troponin I < 0.012 ng/mL (0.01-0.034)
--- NOTE | 2021-08-27 05:24 | PC.NURSE ---
Shift Note-Patient is A/Ox4, no c/o chest pain, palpitations, or dizziness, orthostatic VS lying 68, 109/66, sitting 74, 123/91, standing 95, 107/94. SB 50s while sleeping.
[2021-08-27] MEDS: SODIUM CHLORIDE 0.9% 1,000 ML 75 ML IV (05:32)
[2021-08-27 07:00] VITALS: BP 114/79; PULSE 70; RESP 16; TEMP 36.2; O2SAT 99
[2021-08-27 08:00] VITALS: O2SAT 99
[2021-08-27 09:00] VITALS: BP 135/97; PULSE 95
[2021-08-27] MEDS: ENOXAPARIN 40 MG/0.4 ML SYRINGE SUBCUT (10:27)
[2021-08-27] MEDS: ASPIRIN EC 81 MG TABLET PO (10:27)
--- NOTE | 2021-08-27 12:00 | OT.IPNOTE ---
Chart reviewed and nursing consulted. Per nursing, pt is IND in his mobility and ADLs at this time. Discussed with Pt and he agreed that he is at his baseline. No further OT needs at this time. Will d/c order.
[2021-08-27 12:27] VITALS: BP 134/80; PULSE 61; RESP 16; TEMP 36.6; O2SAT 97
--- NOTE | 2021-08-27 13:03 | PT-IP ANOTE ---
nurse stated that pt is independent with mobility in room and does not need PT. talked to pt and stated that he does not have any concerns with mobility and confirmed that he does not need PT. will d/c PT eval order.
--- NOTE | 2021-08-27 14:07 | CM.DANOTE ---
Patient is a 61 yo male who was admitted on 08/26/21 for Numbness, chest pain. Pt has [employer] for insurance and his PCP is Dougie Marquez. EMR was reviewed. Per MD, pt admitted for TIA r/o and very functional at baseline. Pt to have MRI and stress test with likely d/c home this evening pending test results. Per PT/OT, pt very independent and active at baseline and independent in the room and no concerns and therefore PT/OT discontinued as pt is not needing eval as he is back to baseline with no deficits. Per RN, no concerns regarding any identified barriers to discharge. Pt lives in [place] with his spouse and drives and does not use DME for ambulation and works for the school district and preference is to d/c home via spouse POV and does not anticipate any needs at d/c. Plan: SW to follow for likely d/c home tonight pending test results and currently no SW needs at this time, please refer if indicated. JOE Loera Discharge Planning/Care Management Advanced directive, confirm from FAMILY Start: 08/26/21 14:23 Freq: Q24H Status: Active Protocol: Document 08/26/21 14:23 JLN (Rec: 08/26/21 15:08 JLN [id number]) Advance Directive, confirm on record Time 14:25 Person contacted patient Copy received No CM Discharge Assessment Start: 08/27/21 14:05 Freq: Status: Active Protocol: Document 08/27/21 14:05 BF (Rec: 08/27/21 14:07 BF [id number]) Discharge Planning Assessment Assigned Immunopathologist JOE Gomes DPOA/Assigned Designee Name spouse Kaela Contact Information [phone] Advance Directives? Yes Advance Directives on File No History Provided By Patient,Medical Record Has Patient been admitted in last 30 No days? Prior Living Arrangements House Household Members spouse Type of transporation used prior to Drives own vehicle admit Independent with ADL's Yes Is patient alert and oriented? Yes Caregiver for Another No Discharge Plan Home Transportation Arrangement spouse can provide transport at d/c Referrals Initiated None needed Review Status In Process Please Provide Date Initial DC 08/27/21 Assessment Was Performed Next Review Type Continued Stay Review
--- NOTE | 2021-08-27 14:21 | PC.NURSE ---
0900- Pt finished eating breakfast. C/o heart pounding as well as some mild dizziness. Denies chest pain/pressure, numbness/tingling/burning. He states this happens after he eats. Noted increased PVCs and PACs on telemetry. BP WNL. Instructed pt to notify staff if symptoms increase/change/worsen. ~0945 Pt reports heart pounding and pounding into head with continued dizziness. Denies chest pain/pressure. Denies numbness/tingling burning in face/extremities. BP WNL. EKG obtained. Reported to Dr. Baker and reviewed tele and EKG readings as well as pt's symptoms. No add'l orders at this time. Plan is for pt to have treadmill stress test today. Update given to pt who verbalized understanding.
--- NOTE | 2021-08-27 14:39 | P.DS_ITS ---
History of Present Illness History of Present Illness Date Patient Seen: 08/27/21 Time Patient Seen: 14:39 Chief complaint: Numbness,odd heart beats,chest pain,indigestion Narrative: Per Dr. Perez, Mr. Pascual is a 61M with PMH of HTN, HL who presents with chest pain, palpitations and left sided facial numbness. Patient has had issues with palpit ations previously. He is currently on metoprolol, has been for years, for he says blood pressure, not arrhythmia. He presented to [facility] ED on 08/22 with palpitations and was diagnosed with PACs and sent home. Since being sent home he has had intermittent chest tightness, continued palpitains, dizzines, no shortness of breath. He also developed left sided facial pain, facial numbness, and difficulty speaking. These resolved without intervention. In the ED workup was done, vitals notable for mild bradycardia in 50s-60s. Labs notable for WBC 5.3, hgb 13.4, k 3.9, creatinine 1.05, mag 2.1, trop negative. EKG showed no acuet ischemic changes. CT head showed no acute process. CTA head/neck showed no acute process. He was admitted for further treatment. Family history - Mother had diseased heart valve Discharge Providers Provider Date of admission: 08/26/21 13:23 Discharge Date: 08/27/21 Primary care physician: Dougie Marquez DO Consults: 08/26/21 14:23 Consult to Discharge Planning Routine Comment: Consult to Occupational Therapy Evaluate & Treat Comment: Physician Instructions: Evaluate and treat Consult to Physical Therapy Evaluate & Treat Comment: Physician Instructions: Evaluate and Treat Consult to Speech Therapy Evaluate & Treat Comment: Physician Instructions: Evaluate and treat Discharge provider: Porfirio Baker DO Summary Hospital Course Discharge Diagnosis: 1. 2nd degree type I AV block, resolved 2. Chest pain, improved. 3. Facial numbness, improved. 4. HTN 5. HLD 6. GERD Hospital Course: 61 year old male with PMH of GERD, HTN, HLD admitted for further evaluation of facial numbness and intermittent chest pain. Patient reported symptoms associated with meals. This morning, he was noted to have a second degree type I AV block on telemetry. Electrolytes were unremarkable. His home beta flakita medication was stopped. He underwent MRI which was negative for acute CVA. Underwent nuclear stress testing which was deemed low risk per cardiology. Recommend outpatient holter monitor to see if symptoms or block recurs, previously referred for cardiology and GI evaluations as an outpatient previously. Discontinued patient's beta flakita therapy. Symptoms possibly related to symptomatic block which now resolved, less likely TIA at this time. Exam Vital Signs (past 8 hours): - 08/27/21 07:00 08/27/21 08:00 08/27/21 09:00 Temperature 97.1 F L Pulse Rate 70 95 H Respiratory Rate 16 Blood Pressure 114/79 135/97 H Pulse Oximetry 99 99 08/27/21 12:27 Temperature 97.8 F Pulse Rate 61 Respiratory Rate 16 Blood Pressure 134/80 Pulse Oximetry 97 Oxygen Delivery Method Room Air Oxygen Flow Rate 0 Narrative Exam Narrative: GEN: no acute distress EXT: warm and well perfused, with no edema NEURO: awake, and alert, no focal deficits, upper and lower extremity strength 5/5 Objective Labs Result Diagrams: 08/27/21 04:35 08/27/21 04:35 Labs: Laboratory Results - last 24 hr 08/26/21 08/26/21 08/27/21 10:00 23:20 04:35 WBC 5.5 RBC 4.49 L Hgb 13.1 L Hct 37.7 L MCV 83.9 MCH 29.2 MCHC 34.8 RDW 15.6 H Plt Count 195 Neut % (Auto) 64.4 Lymph % (Auto) 28.4 Gillespie % (Auto) 4.5 Eos % (Auto) 1.5 L Baso % (Auto) 1.2 Neut # (Auto) 3500 Lymph # (Auto) 1600 Gillespie # (Auto) 200 Eos # (Auto) 100 Baso # (Auto) 100 Sodium Potassium Chloride Carbon Dioxide BUN Creatinine Estimated GFR BUN/Creatinine Ratio Glucose Hemoglobin A1c Calcium Magnesium Troponin I < 0.012 Triglycerides Cholesterol LDL Cholesterol, Calc HDL Cholesterol TSH 3.33 08/27/21 08/27/21 08/27/21 04:35 04:35 04:35 WBC RBC Hgb Hct MCV MCH MCHC RDW Plt Count Neut % (Auto) Lymph % (Auto) Gillespie % (Auto) Eos % (Auto) Baso % (Auto) Neut # (Auto) Lymph # (Auto) Gillespie # (Auto) Eos # (Auto) Baso # (Auto) Sodium 139 Potassium 3.9 Chloride 104 Carbon Dioxide 27 BUN 18 Creatinine 0.88 Estimated GFR > 60.0 BUN/Creatinine Ratio 20.5 Glucose 103 Hemoglobin A1c 5.0 Calcium 9.6 Magnesium 2.0 Troponin I < 0.012 Triglycerides 124 Cholesterol 115 L LDL Cholesterol, Calc 56 HDL Cholesterol 34 L TSH PFSH Social History household members: spouse Smoking Status: Never smoker Discharge Plan Discharge Plan Patient Disposition: Home Provider Discharge Comment: You were admitted to the hospital. Found to have a mild heart block which may be causing your symptoms but this improved over time. Beta flakita currently recommended to stop and should not be continued unless directed by a deckhand fishing vessel. Please follow up with cardiology and gastroenterology as previously referred. Discharge orders & Medications Prescriptions: Continued glucosamine sulfate [Glucosamine] 500 mg Tablet 1,000 mg PO DAILY RF: 0 fexofenadine 180 mg Tablet 180 mg PO DAILY RF: 0 omeprazole 20 mg Capsule,Delayed Release(Dr/Ec) 20 mg PO DAILY RF: 0 lisinopril-hydrochlorothiazide 10-12.5 mg tablet 1 tab PO DAILY RF: 0 fluticasone propionate 50 mcg/actuation [place],Suspension 1 spray INTRANASAL BID PRN (Reason: allergies) RF: 0 vitamin B complex Capsule 1 cap PO DAILY RF: 0 fenofibrate 160 mg tablet 160 mg PO DAILY RF: 0 Discontinued metoprolol succinate 50 mg tablet extended release 24 hr 50 mg PO DAILY RF: 0 Follow up/Referrals: Marquez Carrera MD [Physician] - Dougie Marquez DO [Primary Care Provider] - Diet/Activity/Treatments Diet: Diet as Tolerated Activity: As tolerated Visit Report/Discharge Packet Instructions: DI for Heart Block Discharge Data Primary Care Provider: Dougie Marquez Attending Provider: Johnathon Perez
== END 2021-08-27 16:20 | disposition home or self-care (01) ==
LOC: ED 12:10 → AC 13:23
PROVIDERS: Admitting Provider Internal Medicine; Emergency Provider Emergency Medicine; PCP Family Medicine; Referring Provider Emergency Medicine; Visit Provider Internal Medicine
DX: R07.9 Chest pain, unspecified (principal); R20.0 Anesthesia of skin; R42 Dizziness and giddiness; I10 Essential (primary) hypertension; E78.5 Hyperlipidemia, unspecified; K21.9 Gastro-esophageal reflux disease without esophagitis; R29.700 NIHSS score 0; Z20.822 Contact with and (suspected) exposure to COVID-19; R00.1 Bradycardia, unspecified
CPT/HCPCS: 36415; 70450; 70496; 70498; 70551; 71045; 80048; 80053; 80061; 82550; 82553; 83036; 83690; 83735; 84443; 84484; 85025; 85610; 85730; 87635; 93005; 93010; 93017; 93306; 96360; 96361; 99284; C9803; G0378; J1650

== ENCOUNTER → 2021-10-26 14:44 | Outpatient (CLI) | payer OTHER, SELFPAY ==
[2021-08-26 13:34] VITALS: BMI 24.0
[2021-10-26 16:35] LABS: COVID19 -Nasal RAPID Negative (Negative)
== END ==
PROVIDERS: PCP Family Medicine; Referring Provider Nurse Practitioner Family; Visit Provider Nurse Practitioner Family
DX: Z01.812 Encounter for preprocedural laboratory examination (principal); Z20.822 Contact with and (suspected) exposure to COVID-19
CPT/HCPCS: 87635

== ENCOUNTER 2021-10-28 07:20 | Day surgery (SDC) | payer OTHER, SELFPAY ==
[2021-08-26 13:34] VITALS: BMI 24.0
--- NOTE | 2021-10-28 | PATH_ITS ---
[facility] Accession Number: [id number] . 01 Material submitted: . PART A: gastrointestinal site - GASTRIC POLYP PART B: esophagus - ESOPHAGUS AT 41 PART C: colon - COLON POLYP DESCENDING COLON PART D: colon - ASCENDING COLON POLYP . 02 Diagnosis: A. Gastric Polyp: Focal features of fundic gland polyp. Negative for intestinal metaplasia. Negative for dysplasia or malignancy. . B. Esophagus at 41: Disrupted squamocolumnar junctional mucosa with no diagnostic abnormality. Negative for intestinal metaplasia. Negative for dysplasia and malignancy. . C. Colon Polyp Descending Colon: Tubular adenoma. . D. Ascending Colon Polyp: Portion of tubular adenoma x 1. Superficial portion of colorectal mucosa x 1 with a benign lymphoid aggregate. [facility] 10/30/2021 1538 Local . 02 Electronically signed: . Isatu Maher MD, Pathologist NPI- [id number] . 01 Gross description: . Part A: GASTRIC POLYP: Received in formalin is 1 fragment(s) of daugherty, soft tissue measuring 0.2 x 0.2 x 0.2 cm submitted entirely in 1 cassette(s) Part B: ESOPHAGUS AT 41: Received in formalin are 2 fragment(s) of daugherty, soft tissue measuring 0.1 x 0.1 x 0.1 cm to 0.3 x 0.2 x 0.2 cm submitted entirely in 1 cassette(s) Part C: COLON POLYP DESCENDING COLON: Received in formalin is 1 fragment(s) of daugherty, soft tissue measuring 0.1 x 0.1 x 0.1 cm submitted entirely in 1 cassette(s) Part D: ASCENDING COLON POLYP: Received in formalin are 2 fragment(s) of daugherty, soft tissue measuring 0.1 x 0.1 x 0.1 cm to 0.3 x 0.2 x 0.2 cm submitted entirely in 1 cassette(s) /JESSICA 10/29/20212002 Local . 02 Pathologist provided ICD-10: R63.4, R13.10, K59.00, K63.5 . 02 CPT . 294518, 274773, [id number], [id number] Performed at: 01 [facility] [address] [address], [place], [place] [id number] MD Demarco Mcdonough MD Phone: [phone] Performed at: [address] [facility] [id number] [place], [place] [id number] MD Marah Brandon MD Phone: [phone]
[2021-10-28] MEDS: LACTATED RINGERS 1,000 ML 42 ML IV (07:45)
[2021-10-28 07:46] VITALS: BMI 24.0
[2021-10-28 07:53] VITALS: BP 139/88; PULSE 66; RESP 12; TEMP 36.2; O2SAT 99
--- NOTE | 2021-10-28 08:23 | PM.HP.1 ---
History of Present Illness History of Present Illness Chief complaint: Colonoscopy/EGD Narrative: Patient is a very pleasant 61-year-old male who presented for EGD and colonoscopy. He denies any changes in his medical history or medications since he was seen by Dr. Magallanes. He describes epigastric discomfort as well as chest fullness with eating. He also has a personal history colon polyps. His last colonoscopy was in 2013. Patient History Medical History Colon polyps GERD (gastroesophageal reflux disease) Hypertension Surgical History History of hernia repair Family & Social History Social History: household members spouse Tobacco & Substance use: Smoking Status Never smoker alcohol intake current alcohol intake frequency a few times a month Substance Use Type does not use Meds Home Medications and Allergies Home Medications Medication Instructions Recorded Confirmed Type fenofibrate 160 mg tablet 160 mg PO DAILY 08/26/21 10/28/21 History fexofenadine 180 mg tablet 180 mg PO DAILY 08/26/21 10/28/21 History fluticasone propionate 50 1 spray INTRANASAL BID PRN 08/26/21 10/28/21 History mcg/actuation nasal spray,suspension glucosamine sulfate 500 mg tablet 1,000 mg PO DAILY 08/26/21 10/28/21 History (Glucosamine) lisinopril 10 1 tab PO DAILY 08/26/21 10/28/21 History mg-hydrochlorothiazide 12.5 mg tablet omeprazole 20 mg capsule,delayed 20 mg PO DAILY 08/26/21 10/28/21 History release vitamin B complex 1 cap PO DAILY 08/26/21 10/28/21 History aspirin 81 mg tablet 81 mg PO DAILY 10/28/21 10/28/21 History metoprolol succinate 50 mg 25 mg PO DAILY 10/28/21 10/28/21 History tablet,extended release 24 hr Allergies Allergy/AdvReac Type Severity Reaction Status Date / Time No Known Drug Allergies Allergy Verified 10/28/21 07:26 Exam Vital Signs (past 8 hours): - 10/28/21 07:53 Temperature 97.2 F L Pulse Rate 66 Respiratory Rate 12 Blood Pressure 139/88 Pulse Oximetry 99 Oxygen Delivery Method Room Air Const General: cooperative, healthy appearing, comfortable, well developed, well groomed and No acute distress HENMT Head: normal to inspection Resp Effort & Inspection: normal respiratory effort, able to speak in complete sentences, abnormal respiratory pattern and no respiratory distress Auscultation: clear to auscultation bilaterally Cardio Rate: regular rate Rhythm: regular rhythm Heart Sounds: S1 normal and S2 normal GI Palpation: soft Extrem Right lower extremity: No no edema Left lower extremity: No no edema Assessment & Plan Assessment & Plan narrative: Proceed with EGD and colonoscopy today, further recommendations to follow Time Spent With Patient Critical Care time: I spent a total of [] minutes of critical care time on this patient's care today; this time is exclusive of procedural time.
[2021-10-28 08:59] VITALS: BP 112/82; PULSE 71; RESP 8; TEMP 36.4; O2SAT 99
--- NOTE | 2021-10-28 09:04 | P.OP.EGD&C_ITS ---
Operative Date/Time/Diagnoses Date of procedure: 10/28/21 Time of procedure: 08:30 Procedure Notes Procedure in detail: Surgeon: Betty Mota DO Procedure: Esophagogastroduodenoscopy with biopsy and colonoscopy with polypectomy Preoperative diagnosis: Esophageal dysphagia Epigastric pain Chest fullness History of colon polyps, last colonoscopy 2013 Postoperative diagnosis: Horsham-colored esophageal mucosa at 41 cm, biopsy to rule out Garcia's esophagus Mildly tortuous lower 3rd of the esophagus Multiple gastric polyps, biopsied 3 mm colon polyps removed from the ascending colon and descending colon Diverticulosis in the sigmoid colon and descending colon Grade 1 internal hemorrhoids Otherwise normal EGD and colonoscopy Medications: Monitored anesthesia care, see Anesthesia notes for further details Preanesthesia Assessment An H and P was performed/updated and the Px?s ASA class is 2. The procedure was discussed in detail with the patient. The potential risks and complications including infection, bleeding, missed lesions, perforation, need for surgery in case of perforation, prolonged hospital stay, and were explained. A brief question and answer period was allotted and once all questions were answered, informed consent was obtained. The patient was brought back to the procedure room and placed on standard monitoring. The patient?s vital signs were monitored continuously throughout the entire procedure. Prior to starting, a timeout was performed to confirm the patient?s identity, allergies, medications, and procedure. Procedure in detail The patient was placed in left lateral decubitus position and a bite block was inserted. The tip of the upper endoscope was placed into the mouth and advanced without difficulty under direct visualization into the esophagus. Esophagus: Horsham-colored esophageal mucosa at 41 cm, biopsy to rule out Garcia's esophagus Mildly tortuous lower 3rd of the esophagus Stomach: Multiple gastric polyps throughout the stomach, biopsied Normal stomach on retroflexion Duodenum: Normal appearing duodenum After the upper endoscopy, preparations were made for the colonoscopy. Once adequate sedation was obtained a GALINA was performed. The digital rectal examination did not reveal any palpable lesions. The tip of the colonoscope was placed in the anal canal and advanced without difficulty all the way to the cecum which was identified by the appendiceal orifice and the ileocecal valve. The patient tolerated the procedure well and will be brought back to the recovery area to be discharged once criteria are met. The prep was judged to be good/excellent and adequate to identify polyps less than 6 mm. The withdrawal time was 7 minutes. Complications There were no complications and estimated blood loss was minimal. Recommendations Resume previous diet Continue outpatient medications Follow-up pathology results Repeat colonoscopy after pathology results are reviewed Consider esophageal motility testing for further workup of difficulty swallowing, this will be arranged outpatient Follow-up at our office to be scheduled An emergency contact number was given to the patient for any complications related to the procedure
[2021-10-28 09:05] VITALS: BP 118/79; PULSE 69; RESP 10; O2SAT 99
[2021-10-28 09:10] VITALS: BP 121/82; PULSE 66; RESP 13; O2SAT 100
[2021-10-28 09:15] VITALS: BP 125/83; PULSE 65; RESP 13; O2SAT 100
[2021-10-28 09:31] VITALS: BP 123/84; PULSE 62; RESP 15; TEMP 35.9; O2SAT 100
== END 2021-10-28 09:44 | disposition home or self-care (01) ==
PROVIDERS: Family Provider Surgery; PCP Family Medicine; Referring Provider Student in an Organized Health Care Education/Training Program; Visit Provider Student in an Organized Health Care Education/Training Program
PROC: 0DJ08ZZ Inspection of Upper Intestinal Tract, Via Natural or Artificial Opening Endoscopic (ICD-10-PCS; CPT 43235; principal; 2021-10-28 08:30)
PROC: 0DJD8ZZ Inspection of Lower Intestinal Tract, Via Natural or Artificial Opening Endoscopic (ICD-10-PCS; CPT 45378; 2021-10-28 08:30)
DX: K59.00 Constipation, unspecified (principal); R63.4 Abnormal weight loss; R13.10 Dysphagia, unspecified; Z86.010 Personal history of colon polyps; I10 Essential (primary) hypertension; K64.0 First degree hemorrhoids; K57.30 Diverticulosis of large intestine without perforation or abscess without bleeding; K31.7 Polyp of stomach and duodenum; K21.9 Gastro-esophageal reflux disease without esophagitis; D12.4 Benign neoplasm of descending colon; D12.2 Benign neoplasm of ascending colon
CPT/HCPCS: 45380; 43239

== ENCOUNTER → 2022-01-11 09:23 | Outpatient (CLI) | payer OTHER, SELFPAY ==
[2021-08-26 13:34] VITALS: BMI 24.0
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
== END ==
PROVIDERS: Family Provider Surgery; PCP Family Medicine; Referring Provider Orthopaedic Surgery Foot and Ankle Surgery; Visit Provider Orthopaedic Surgery Foot and Ankle Surgery
DX: S93.412A Sprain of calcaneofibular ligament of left ankle, initial encounter (principal); S93.491A Sprain of other ligament of right ankle, initial encounter; S96.811A Strain of other specified muscles and tendons at ankle and foot level, right foot, initial encounter; S93.421A Sprain of deltoid ligament of right ankle, initial encounter; M25.571 Pain in right ankle and joints of right foot; X58.XXXA Exposure to other specified factors, initial encounter
CPT/HCPCS: 73721

== ENCOUNTER 2023-07-19 16:27 | Emergency (ER) | payer OTHER, SELFPAY ==
[2021-08-26 13:34] VITALS: BMI 24.0
[2023-07-19 16:35] VITALS: BP 140/86; PULSE 90; RESP 16; TEMP 36.6; O2SAT 99; BMI 25.2
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
[2023-07-19 18:27] VITALS: PULSE 68; O2SAT 99
[2023-07-19 18:29] VITALS: BP 127/82; PULSE 65; O2SAT 99
[2023-07-19] MEDS: BACITRACIN OINT 0.9 GM PCKT 1 APPLIC TOP (18:50)
[2023-07-19] MEDS: HYDROCODONE/ACET 5/325 TABLET 2 TAB PO (19:04)
[2023-07-19] MEDS: ONDANSETRON 4 MG ODT PREPACK 1 BOTTLE MISC (19:04)
[2023-07-19] MEDS: HYDROCODONE/ACET 5/325 PREPACK 1 BOTTLE MISC (19:04)
[2023-07-19 19:08] VITALS: O2SAT 98
[2023-07-19 19:09] VITALS: BP 148/73; PULSE 75; O2SAT 98
== END 2023-07-19 19:15 | disposition home or self-care (01) ==
PROVIDERS: Emergency Provider Emergency Medicine; Family Provider Surgery; PCP Family Medicine
DX: S82.142A Displaced bicondylar fracture of left tibia, initial encounter for closed fracture (principal); S80.812A Abrasion, left lower leg, initial encounter; V23.49XA Other motorcycle driver injured in collision with car, pick-up truck or van in traffic accident, initial encounter; Z79.899 Other long term (current) drug therapy
CPT/HCPCS: 73552; 73562; 73590; 73700; 99284; 99285

== ENCOUNTER → 2024-06-10 09:59 | Outpatient (CLI) | payer OTHER, SELFPAY ==
[2021-08-26 13:34] VITALS: BMI 24.0
--- NOTE | 2024-06-10 10:01 | DI.RAD.S_ITS ---
PROCEDURE: XR KNEE RT 3V INDICATIONS: Right knee pain and swelling TECHNIQUE: 3 views of the knee were acquired. COMPARISON: [facility] [place], CR, XR KNEE 4+ VIEWS LEFT, 09/01/2023, 9:53. [facility], CR, XR KNEE LT 3V, 07/19/2023, 16:53. FINDINGS: Bones: No fractures or dislocations. No suspicious bony lesions. Mild generalized degenerative changes are seen. Soft tissues: There is a moderate right knee joint effusion. No suspicious soft tissue calcifications. IMPRESSION: Moderate right knee joint effusion. No acute bony abnormality is seen by plain film. If it would be helpful for clinical management decision making, please consider a dedicated, scheduled knee MRI for further evaluation (assuming that there is no contraindication). Dictated by: Daniele River M.D. on 06/10/2024 at 9:44 Approved by: Daniele River M.D. on 06/10/2024 at 9:45
== END ==
PROVIDERS: Family Provider Surgery; PCP Family Medicine; Referring Provider Physician Assistant Surgical; Visit Provider Physician Assistant Surgical
DX: M25.461 Effusion, right knee (principal); M25.561 Pain in right knee
CPT/HCPCS: 73562

== ENCOUNTER 2024-06-17 07:57 | Emergency (ER) | payer OTHER, SELFPAY ==
[2021-08-26 13:34] VITALS: BMI 24.0
[2024-06-17 08:01] VITALS: BP 147/85; PULSE 77; RESP 16; TEMP 36.1; O2SAT 99; BMI 25.7
--- NOTE | 2024-06-17 08:24 | ED.LOWEXIN ---
HPI - Extremity Injury (Lower) General Chief Complaint: Extremity Injury, Lower Stated Complaint: Swelling R Leg, Pain Time Seen by Provider: 06/17/24 08:24 Source: patient, RN notes reviewed and old records reviewed Mode of arrival: Family Vehicle Limitations: no limitations History of Present Illness HPI Narrative: 64-year-old male history of hypertension, dyslipidemia, former smoker who presents with complaint of right knee pain and swelling which is now extending down into his leg and thigh. Patient states he has had issues with his knee in the past with swelling and irritation. In the last several weeks he has had several episodes the initiating 1 was he was on his knees working on a water fountain when he leaned to the side and his knee/patella sort of rolled and felt like it popped. Patient states he had some swelling and discomfort with ambulation. It improved but then had 2 additional episodes where he had to work on his knees for prolonged periods of time. States he did not get the similar feel of movement and a pop but his knee had increasing swelling and then would improve with over time very slowly increasing discomfort. Patient most recently was working on his knee for a longer period of time states that the swelling increased again, he does not see the lump that was there before. But notes that the swelling is a little bit up and down his leg now which it was not before. He states it is more comfortable for him to walk or ambulate on it than it is to be still for long periods of time. He notes swelling over the knee itself but states what brought him today is that he now has some swelling in the leg and thigh. He notes a little bit of warmth. He denies fevers, no chills, no chest pain or shortness of breath. No other numbness tingling or weakness. No other GI or urinary symptoms. Has not had any interventions on that knee in the past. Has been told he had an injury to the meniscus in the past. Denies any allergies to medication, former smoker, no IV or injection drugs. Patient has been taking Tylenol and ibuprofen which are moderately helpful for pain. Patient went to the walk-in clinic had an x-ray which showed moderate joint effusion, was told to rest ice and elevated and has been set up for referral for Orthopedic surgery in about 3 weeks. Related Data Home Medications Medication Instructions Recorded Confirmed fenofibrate 160 mg tablet 160 mg PO DAILY 08/26/21 06/10/24 fexofenadine 180 mg tablet 180 mg PO DAILY 08/26/21 06/10/24 fluticasone propionate 50 1 spray intranasal BID PRN 08/26/21 06/10/24 mcg/actuation nasal allergies spray,suspension glucosamine sulfate 500 mg tablet 1,000 mg PO DAILY 08/26/21 06/10/24 (Glucosamine) lisinopril 10 1 tab PO DAILY 08/26/21 06/10/24 mg-hydrochlorothiazide 12.5 mg tablet omeprazole 20 mg capsule,delayed 20 mg PO DAILY 08/26/21 06/10/24 release vitamin B complex 1 cap PO DAILY 08/26/21 06/10/24 aspirin 81 mg tablet 81 mg PO DAILY 10/28/21 06/10/24 metoprolol succinate 50 mg 25 mg PO DAILY 10/28/21 06/10/24 tablet,extended release 24 hr Previous Rx's Medication Instructions Recorded hydrocodone 5 mg-acetaminophen 325 1 tab PO Q4-6H PRN pain #20 tabs 07/19/23 mg tablet meloxicam 7.5 mg tablet 7.5 mg PO BID PRN pain #10 tabs 06/17/24 Allergies Allergy/AdvReac Type Severity Reaction Status Date / Time No Known Drug Allergies Allergy Verified 06/10/24 09:35 Review of Systems Review of Systems ROS Unobtainable: All systems reviewed & are unremarkable except as noted in HPI and below Patient History Medical History GERD (gastroesophageal reflux disease) Colon polyps Hypertension Surgical History History of hernia repair Social History household members: spouse Smoking Status: Former smoker alcohol intake: current Smoking Status: Former smoker alcohol intake frequency: a few times a month Substance Use Type: does not use Exam Narrative Exam Narrative: GENERAL: Alert and oriented x three, mild distress. HEENT: Head normocephalic, atraumatic, EOMI, pupils reactive, face symmetric, moist mucous membranes NECK: Supple, full range of motion CARDIOVASCULAR: Regular rate and rhythm without murmurs, rubs or gallops. RESPIRATORY: Breath sounds equal bilaterally, no wheezes rales or rhonchi. ABDOMEN: Soft, nontender. Normoactive bowel sounds all 4 quadrants. No guarding or rebound, rigidity, no mass EXTREMITIES: Normal range of motion, no clubbing. Neurovascularly intact. Patient has some mild tenderness particularly over the inferior lateral border between the patella and knee joint itself. Patient does have swelling of the knee in comparison to the alternate leg as well as some mild swelling of the calf and thigh. There is some slight warmth, possibly some scant erythema but difficult to discern even side by side. 2+ pulses bilaterally. Normal sensation throughout. No joint laxity with anterior-posterior drawer, nontender with valgus varus. Patient can flex and extend although uncomfortable. NEUROLOGICAL: Cranial nerves II through XII grossly intact. Moving all extremities SKIN: Warm, dry, no petechiae, no rashes or lesions. Initial Vital Signs Initial Vital Signs: Vital Signs Temperature 97.0 F L 06/17/24 08:01 Pulse Rate 77 06/17/24 08:01 Respiratory Rate 16 06/17/24 08:01 Blood Pressure 147/85 H 06/17/24 08:01 Pulse Oximetry 99 06/17/24 08:01 Oxygen Delivery Method Room Air 06/17/24 08:01 Course Orders Ordered: Discontinued Medications Hydrocodone Bitart/Acetaminophen (Hydrocodone/Acet 5/325 Tablet) 1 tab PO NOW ONE Stop: 06/17/24 08:50 Last Admin: 06/17/24 09:58 Dose: 1 tab Documented By: DIRK Vital Signs Vital signs: Vital Signs - 8 hr 06/17/24 10:29 Pulse Rate 70 Respiratory Rate 20 Blood Pressure 117/81 Pulse Oximetry 98 Oxygen Delivery Method Room Air MDM - Extremity Injury (Lower) Imaging Data Extremity x-ray #1: Radiologist's Impression: [address] [address] XRay Report Signed Patient: Tavo Pascual MR#: [id number] : 1960 Acct:[id number] Age/Sex: 64 / M Date of Service: 06/17/24 Loc: ED Accession Number: [id number] Procedure: XR knee RT 3V Ordering Provider: Eliana Ng D.O. PROCEDURE: XR KNEE RT 3V INDICATIONS: right knee pain, swelling worse after kneeling TECHNIQUE: 3 views of the knee were acquired. COMPARISON: [facility], CR, XR KNEE RT 3V, 06/10/2024, 10:02. FINDINGS: Bones: No fractures or dislocations. No suspicious bony lesions. Soft tissues: Small joint effusion. Prepatellar soft tissue swelling. Mild tricompartmental joint degeneration. No suspicious soft tissue calcifications. IMPRESSION: 1. No acute bony abnormality. Small joint effusion. 2. Mild tricompartmental joint degeneration. If clinical symptoms persist, consider MRI for further evaluation. Dictated by: Debbie Mcclendon M.D. on 06/17/2024 at 8:14 Approved by: Debbie Mcclendon M.D. on 06/17/2024 at 8:17 US - DVT: Radiologist's Impression: [address] [address] Ultrasound Report Signed Patient: Tavo Pascual MR#: [id number] : 1960 Acct:[id number] Age/Sex: 64 / M Date of Service: 06/17/24 Loc: ED Accession Number: [id number] Procedure: US periph venous low extrem rt Ordering Provider: Eliana Ng D.O. PROCEDURE: US PERIPH VENOUS LOW EXTREM RT INDICATIONS: swelling knee/thigh/leg, had knee swelling initially TECHNIQUE: Real-time imaging, as well as color and pulse Doppler interrogation, were performed of the lower extremity deep veins from the inguinal ligament to the popliteal fossa, with documentation of the visualized calf veins. COMPARISON: None. FINDINGS: The common femoral, femoral, popliteal, and the visualized calf veins are normally compressible, and free of intraluminal thrombus. Color and pulse Doppler demonstrate normal phasic intraluminal flow. There is normal augmentation response to distal compression maneuver. No sonographic evidence of a Major's cyst. IMPRESSION: No findings of lower extremity deep venous thrombosis. Dictated by: Debbie Mcclendon M.D. on 06/17/2024 at 8:40 Approved by: Debbie Mcclendon M.D. on 06/17/2024 at 8:41 MDM Narrative Medical decision making narrative: 64-year-old male with recurrent trauma to his right knee. Suspect patient has a chronic effusion although does some increased swelling down the leg in comparison to his right. Joint does not appear septic. Discussed with patient we will obtain DVT ultrasound to rule out but seems less likely. We will also repeat x-ray. Knee x-ray shows small joint effusion, prepatellar swelling, mild tricompartmental joint degeneration. Ultrasound DVT is negative. Would have patient continue with NSAIDs maybe slightly stronger prescription in combination with Tylenol PRN. Knee immobilizer, weight-bearing as tolerated with return precautions. Patient has already been set up with follow up with Orthopedic surgery. Patient has 80 immobilizer and crutches at home. Has not appointment June with the orthopedic surgery discussed return precautions all questions answered. Discharge Plan Departure Patient Disposition: Home Clinical Impression: Effusion of knee joint right Instructions: DI for Knee Effusion Activity Restrictions/Additional Instructions: Please follow up with Orthopedic surgery. You can call tomorrow to see if they can move up your appointment. Ultrasound imaging does not show any DVT or blood clot, do have a small effusion at the joint itself and some arthritic changes. Can take meloxicam 1 tablet every 12 hours. Do not take ibuprofen, Aleve or other NSAIDs with this medication. Can take Tylenol up to a 1000 mg with the medication as needed. Prescription sent to [facility] in [place] You can weightbear as tolerated. If you are more comfortable moving the knee you can continue to do this but I would avoid prolonged periods of being on your knees or putting weight on the knee itself in a kneeling position. Elevated affected body part to decrease swelling. OK to use ice pack on the affected body part. Use for 15-20 minutes each time, for 5-6x per day. If you develop worsening pain, numbness, tingling, discoloration of the affected body part, just the knee immobilizer, and either see your doctor for an urgent re-assessment, or return to the Emergency Department. Return to the Emergency Department for any new or worsening symptoms. Prescriptions: New meloxicam 7.5 mg tablet 7.5 mg PO BID PRN (Reason: pain) Qty: 10 0RF No Action glucosamine sulfate [Glucosamine] 500 mg Tablet 1,000 mg PO DAILY fexofenadine 180 mg Tablet 180 mg PO DAILY omeprazole 20 mg Capsule,Delayed Release(Dr/Ec) 20 mg PO DAILY lisinopril-hydrochlorothiazide 10-12.5 mg tablet 1 tab PO DAILY fluticasone propionate 50 mcg/actuation [place],Suspension 1 spray INTRANASAL BID PRN (Reason: allergies) vitamin B complex Capsule 1 cap PO DAILY fenofibrate 160 mg tablet 160 mg PO DAILY metoprolol succinate 50 mg tablet extended release 24 hr 25 mg PO DAILY aspirin 81 mg Tablet 81 mg PO DAILY hydrocodone-acetaminophen 5-325 mg tablet 1 tab PO Q4-6H PRN (Reason: pain) Qty: 20 0RF Referrals: Arleth Kat MD [Physician] - Dougie Marquez DO [Primary Care Provider] - Stand Alone Forms: Patient Portal/API, Work Release Note
--- NOTE | 2024-06-17 08:48 | DI.RAD.S_ITS ---
PROCEDURE: XR KNEE RT 3V INDICATIONS: right knee pain, swelling worse after kneeling TECHNIQUE: 3 views of the knee were acquired. COMPARISON: [facility], CR, XR KNEE RT 3V, 06/10/2024, 10:02. FINDINGS: Bones: No fractures or dislocations. No suspicious bony lesions. Soft tissues: Small joint effusion. Prepatellar soft tissue swelling. Mild tricompartmental joint degeneration. No suspicious soft tissue calcifications. IMPRESSION: 1. No acute bony abnormality. Small joint effusion. 2. Mild tricompartmental joint degeneration. If clinical symptoms persist, consider MRI for further evaluation. Dictated by: Debbie Mcclendon M.D. on 06/17/2024 at 8:14 Approved by: Debbie Mcclendon M.D. on 06/17/2024 at 8:17
--- NOTE | 2024-06-17 08:48 | DI.US.S_ITS ---
PROCEDURE: US PERIPH VENOUS LOW EXTREM RT INDICATIONS: swelling knee/thigh/leg, had knee swelling initially TECHNIQUE: Real-time imaging, as well as color and pulse Doppler interrogation, were performed of the lower extremity deep veins from the inguinal ligament to the popliteal fossa, with documentation of the visualized calf veins. COMPARISON: None. FINDINGS: The common femoral, femoral, popliteal, and the visualized calf veins are normally compressible, and free of intraluminal thrombus. Color and pulse Doppler demonstrate normal phasic intraluminal flow. There is normal augmentation response to distal compression maneuver. No sonographic evidence of a Major's cyst. IMPRESSION: No findings of lower extremity deep venous thrombosis. Dictated by: Debbie Mcclendon M.D. on 06/17/2024 at 8:40 Approved by: Debbie Mcclendon M.D. on 06/17/2024 at 8:41
[2024-06-17] MEDS: HYDROCODONE/ACET 5/325 TABLET 1 TAB PO (09:58)
[2024-06-17 10:29] VITALS: BP 117/81; PULSE 70; RESP 20; O2SAT 98
== END 2024-06-17 10:31 | disposition home or self-care (01) ==
PROVIDERS: Emergency Provider Emergency Medicine; Family Provider Surgery; PCP Family Medicine
DX: M25.461 Effusion, right knee (principal); M17.11 Unilateral primary osteoarthritis, right knee; Z79.899 Other long term (current) drug therapy
CPT/HCPCS: 73562; 93971; 99283

== ENCOUNTER → 2024-07-12 07:46 | Outpatient (CLI) | payer OTHER, SELFPAY ==
[2021-08-26 13:34] VITALS: BMI 24.0
--- NOTE | 2024-07-12 07:47 | DI.MRI.S_ITS ---
PROCEDURE: MR KNEE RT WO CON INDICATIONS: RIGHT KNEE PAIN TECHNIQUE: Noncontrast sagittal PD fast spin echo and T2 fast spin echo with fat saturation, sagittal 3-D FLASH with fat saturation; coronal T1 spin echo and PD fast spin echo with fat saturation, and axial PD fast spin echo with fat saturation through the knee. COMPARISON: [facility], CR, XR KNEE RT 3V, 06/17/2024, 8:50. [facility], MR, MR KNEE RT WO CON, 10/31/2019, 11:19. FINDINGS: Image quality: Excellent. Bones: Subchondral marrow edema is present at the median patellar facet (5/8) as well as the posterior nonweightbearing lateral femoral condyle (7/10). There is no acute fracture or dislocation. Joints: There is a trace knee joint effusion. There is mild knee osteoarthritis. Major's cyst: Trace Major's cyst. Menisci: There is mild intermediate signal at the bodies of the menisci, which does not meet signal criteria for tear (08/05; 08/07). The medial meniscus is otherwise normal. The lateral meniscus is otherwise normal. The posterior root attachments are normal. Cruciate ligaments: The anterior cruciate ligament is normal. The posterior cruciate ligament is normal. Collateral ligaments: The medial collateral ligament complex is normal. The lateral collateral ligament complex is normal. Popliteus Muscle/Tendon: The popliteus muscle and tendon are normal. Extensor mechanism: There is mild intermediate signal in the quadriceps tendon. Re-identified along the superolateral portion of the patellar tendon origin, there is a partial-thickness, partial width tear, which is associated with a subcutaneous 1.2 cm cyst (/15; 7/11). The patellar tendon is otherwise normal. The medial and lateral patellar retinacular attachments are normal. Articular cartilage: Partial thickness chondral fissuring and surface fibrillation is present at the weight-bearing medial compartment (/21). Partial-thickness chondral loss and fissuring is present along the lateral patellofemoral compartment (5/11). Other: Mild edema in the superolateral portion of Hoffa's fat pad (7/12). Small amount of fluid in the infrapatellar bursa. IMPRESSION: 1. Intermediate signal at the meniscal bodies, that does not meet signal criteria for tears. These likely represent fibrofatty vascular channels. 2. No cruciate ligament tears. 3. Chronic partial width, partial-thickness tear of the superolateral patellar tendon with an associated 1.2 cm subcutaneous cyst. 4. Mild infrapatellar bursitis. 5. Mild edema in the superolateral portion of Hoffa's fat pad, which can be seen with Hoffa's fat pad and binge mint syndrome. 6. Mild knee osteoarthritis with associated subchondral marrow edema and articular cartilage defects. Dictated by: Lj Siddiqui M.D. on 07/16/2024 at 9:41 Approved by: Lj Siddiqui M.D. on 07/16/2024 at 10:18
== END ==
PROVIDERS: Family Provider Surgery; PCP Family Medicine; Referring Provider Orthopaedic Surgery Adult Reconstructive Orthopaedic Surgery; Visit Provider Orthopaedic Surgery Adult Reconstructive Orthopaedic Surgery
DX: S76.111A Strain of right quadriceps muscle, fascia and tendon, initial encounter (principal); M25.561 Pain in right knee; M17.11 Unilateral primary osteoarthritis, right knee; M70.51 Other bursitis of knee, right knee
CPT/HCPCS: 73721

== ENCOUNTER 2025-02-15 10:42 | Emergency (ER) | payer OTHER, SELFPAY ==
[2021-08-26 13:34] VITALS: BMI 24.0
[2025-02-15] VITALS (7 sets, daily range): BP systolic 154; BP diastolic 85–87; PULSE 61–85; RESP 16–19; TEMP 36.5–36.9; O2SAT 97–100; BMI 25.0
--- NOTE | 2025-02-15 11:35 | ED.BACK ---
HPI - Back Pain/Injury General Chief Complaint: Back Pain/Injury Stated Complaint: WC-lower back injury Time Seen by Provider: 02/15/25 11:35 Source: patient Mode of arrival: Family Vehicle Limitations: no limitations History of Present Illness HPI Narrative: 65-year-old male history of hypertension had sudden onset of low back pain at work earlier today. Patient was using a large wrench was about chest tight rotating it little bit towards him when he felt sudden pain in his lower back particularly on the right side. [place] like there was sort of hot water flush down both of his legs. He was has a little bit of tingling sensation since in both legs. States pain does not radiate down his legs but it was worsened with movement particularly movement of his right leg. States initially could not really walk for several minutes but has been able to walk since. He finds it quite painful to be fully extended in his back. He states being still is not particularly painful. He denies any loss of bowel or bladder control. He was not had any prior interventions or major issues with a his back in the past. States that he does take medication for hypertension, denies any aspirin or thinners. Denies any recent surgeries. No tobacco, no regular alcohol, no recreational drugs. Related Data Home Medications Medication Instructions Recorded Confirmed fenofibrate 160 mg tablet 160 mg PO DAILY 08/26/21 06/10/24 fexofenadine 180 mg tablet 180 mg PO DAILY 08/26/21 06/10/24 fluticasone propionate 50 1 spray intranasal BID PRN 08/26/21 06/10/24 mcg/actuation nasal allergies spray,suspension glucosamine sulfate 500 mg tablet 1,000 mg PO DAILY 08/26/21 06/10/24 (Glucosamine) lisinopril 10 1 tab PO DAILY 08/26/21 06/10/24 mg-hydrochlorothiazide 12.5 mg tablet omeprazole 20 mg capsule,delayed 20 mg PO DAILY 08/26/21 06/10/24 release vitamin B complex 1 cap PO DAILY 08/26/21 06/10/24 aspirin 81 mg tablet 81 mg PO DAILY 10/28/21 06/10/24 metoprolol succinate 50 mg 25 mg PO DAILY 10/28/21 06/10/24 tablet,extended release 24 hr Previous Rx's Medication Instructions Recorded hydrocodone 5 mg-acetaminophen 325 1 tab PO Q4-6H PRN pain #20 tabs 07/19/23 mg tablet meloxicam 7.5 mg tablet 7.5 mg PO BID PRN pain #10 tabs 06/17/24 tramadol 50 mg tablet 50 mg PO Q6H PRN pain #14 tabs 02/15/25 Allergies Allergy/AdvReac Type Severity Reaction Status Date / Time No Known Drug Allergies Allergy Verified 06/10/24 09:35 Review of Systems Review of Systems ROS Unobtainable: All systems reviewed & are unremarkable except as noted in HPI and below Patient History Medical History GERD (gastroesophageal reflux disease) Colon polyps Hypertension Surgical History History of hernia repair Social History household members: spouse Smoking Status: Never smoker alcohol intake: current Smoking Status: Never smoker alcohol intake frequency: a few times a month Exam Narrative Exam Narrative: GENERAL: Alert and oriented x three, male in mild distress HEENT: Head normocephalic, atraumatic, EOMI, pupils reactive, face symmetric, moist mucous membranes NECK: Supple, full range of motion CARDIOVASCULAR: Regular rate and rhythm without murmurs, rubs or gallops. RESPIRATORY: Breath sounds equal bilaterally, no wheezes rales or rhonchi. ABDOMEN: Soft, nontender. Normoactive bowel sounds all 4 quadrants. No guarding or rebound, rigidity, no mass : No CVA tenderness BACK: No cervical, thoracic or lumbar vertebral point tenderness. Patient has mildly decreased range of motion, patient is able to sit up from a lying position upright with minimal assistance. Patient's gait is antalgic. Rectal exam is deferred. No saddle anesthesia. No saddle anesthesia. Muscle strength is 5/5 in lower extremities, DTRs are 2/4 and lower extremities. Dorsalis pedis and tibialis pulses are 2+ and lower extremities. Sensation is intact in the lower extremities. EXTREMITIES: Normal range of motion, no clubbing or edema. Neurovascularly intact NEUROLOGICAL: Cranial nerves II through XII grossly intact. Moving all extremities SKIN: Warm, dry, no petechiae, no rashes or lesions. Initial Vital Signs Initial Vital Signs: Vital Signs Temperature 97.7 F 02/15/25 10:45 Pulse Rate 85 02/15/25 10:45 Respiratory Rate 16 02/15/25 10:45 Blood Pressure 154/85 H 02/15/25 10:45 Pulse Oximetry 100 02/15/25 10:45 Oxygen Delivery Method Room Air 02/15/25 10:45 Course Orders Ordered: Discontinued Medications Ketorolac Tromethamine (Ketorolac 30 Mg/Ml Vial) 30 mg IM NOW ONE Stop: 02/15/25 11:50 Last Admin: 02/15/25 12:07 Dose: 30 mg Documented By: Vital Signs Vital signs: Vital Signs - 8 hr 02/15/25 10:45 02/15/25 10:51 02/15/25 10:52 Temperature 97.7 F Pulse Rate 85 82 81 Respiratory Rate 16 Blood Pressure 154/85 H Pulse Oximetry 100 100 99 Oxygen Delivery Method Room Air 02/15/25 10:52 02/15/25 11:00 02/15/25 11:30 Temperature Pulse Rate 84 61 Respiratory Rate Blood Pressure 154/85 H Pulse Oximetry 98 97 Oxygen Delivery Method 02/15/25 12:00 02/15/25 12:15 Temperature 98.4 F Pulse Rate 69 68 Respiratory Rate 19 Blood Pressure 154/87 H Pulse Oximetry 99 98 Oxygen Delivery Method Room Air MDM - Back Pain/Injury MDM Narrative Medical decision making narrative: 65-year-old male with sudden onset of low back pain a little bit more to the right with some mild paresthesias. Patient has not had any other red flag symptoms. He has been able to ambulate although more uncomfortable when he was fully extended. Had some acetaminophen earlier today which has been a little bit helpful. He has been able to drive himself and get about. At this time imaging is not felt to be required. Plan for rest, pain management and if patient is having persistent symptoms to follow up. Did review red flag symptoms and emergent reasons to return to the emergency department. Patient's L and I paperwork was filled out. Patient had a dose of IM Toradol here in the department. Discharge Plan Departure Patient Disposition: Home Clinical Impression: Lumbar back pain with radiculopathy affecting lower extremity Instructions: DI for Low Back Pain Activity Restrictions/Additional Instructions: Follow up in the next week with L and I provider if your symptoms are not improving. You can slowly increase your activity as tolerated. I would recommend moist heat to the affected area, hot showers, hot compresses, etc. to the affected area. I would recommend acetaminophen up to a 1000 mg and/or ibuprofen up to 600 mg every 6 hours as needed for pain. If inadequate you can take tramadol 1-2 tablets every 6 hours as needed. This medication can make you sleepy do not drive, perform hazardous activities or make any major decisions while taking it. This medication will make you constipated please take a stool softener once to twice daily until stools are soft and regular. Prescription sent to [facility] in [place]. Please return if you are having rapidly worsening symptoms, new weakness, loss of sensation, loss of bowel bladder control, inability to walk or ambulate safely, inability to lift or move your leg appropriately or other new or concerning changes. Prescriptions: New tramadol 50 mg tablet 50 mg PO Q6H PRN (Reason: pain) Qty: 14 0RF No Action glucosamine sulfate [Glucosamine] 500 mg Tablet 1,000 mg PO DAILY fexofenadine 180 mg Tablet 180 mg PO DAILY omeprazole 20 mg Capsule,Delayed Release(Dr/Ec) 20 mg PO DAILY lisinopril-hydrochlorothiazide 10-12.5 mg tablet 1 tab PO DAILY fluticasone propionate 50 mcg/actuation [place],Suspension 1 spray INTRANASAL BID PRN (Reason: allergies) vitamin B complex Capsule 1 cap PO DAILY fenofibrate 160 mg tablet 160 mg PO DAILY metoprolol succinate 50 mg tablet extended release 24 hr 25 mg PO DAILY aspirin 81 mg Tablet 81 mg PO DAILY hydrocodone-acetaminophen 5-325 mg tablet 1 tab PO Q4-6H PRN (Reason: pain) Qty: 20 0RF meloxicam 7.5 mg tablet 7.5 mg PO BID PRN (Reason: pain) Qty: 10 0RF Referrals: Dougie Marquez DO [Primary Care Provider] - Stand Alone Forms: Patient Portal/API/Survey, Work Release Note
[2025-02-15] MEDS: KETOROLAC 30 MG/ML VIAL IM (12:07)
== END 2025-02-15 12:16 | disposition home or self-care (01) ==
PROVIDERS: Emergency Provider Emergency Medicine; Family Provider Surgery; PCP Family Medicine
DX: M54.16 Radiculopathy, lumbar region (principal); M54.50 Low back pain, unspecified
CPT/HCPCS: 96372; 99283; 99284; J1885